=== PATIENT | male | born 1945 | race Caucasian/White ===

== ENCOUNTER 2021-11-19 11:15 | Outpatient (CLI) | payer MEDICARE, SELFPAY ==
[2021-11-19 11:56] LABS: Hematocrit 40.8 % (42.0-52.0); Hemoglobin 14.2 g/dL (14.0-18.0)
--- NOTE | 2021-11-19 11:58 | ECG_ITS ---
Measurements Intervals [place] Rate: 75 P: 64 CO: 150 QRS: -45 QRSD: 157 T: 18 QT: 410 QTc: 461 Interpretive Statements SINUS RHYTHM LEFT AXIS DEVIATION RIGHT BUNDLE BRANCH BLOCK INFERIOR INFARCT, AGE INDETERMINATE BASELINE ARTIFACT- I, III, AVL ABNORMAL ECG NO PREVIOUS ECG AVAILABLE FOR COMPARISON Electronically Signed On 11-19-2021 13:14:20 CDT by Rubio Clark D.O.
[2021-11-19 12:13] LABS: Albumin Level 4.4 g/dL (3.5-5.1); Estimated Glomerular Filt Rate > 60; Glucose 131 mg/dL (65-110)
== END 2021-11-19 11:16 | disposition home or self-care (01) ==
PROVIDERS: Visit Provider Orthopaedic Surgery
DX: M16.11 Unilateral primary osteoarthritis, right hip (principal); E11.9 Type 2 diabetes mellitus without complications; E78.5 Hyperlipidemia, unspecified; I05.9 Rheumatic mitral valve disease, unspecified; I10 Essential (primary) hypertension; I45.10 Unspecified right bundle-branch block
CPT/HCPCS: 36415; 82040; 82565; 82947; 83036; 85014; 85018; 93005

== ENCOUNTER 2021-12-18 08:28 | Outpatient (CLI) | payer MEDICARE, SELFPAY ==
[2021-12-18 10:30] LABS: Basophils Percent Auto 0.3 % (0.2-1.2); Eosinophils Absolute Auto 0.1 K/mm3 (0-0.3); Eosinophils Percent Auto 0.8 % (0-4.4); Hematocrit 40.7 % (42.0-52.0); Hemoglobin 14.1 g/dL (14.0-18.0); Immature Granulocyte Absolute 0.03 K/mm3 (0.00-0.031); Immature Granulocyte Percent A 0.3 % (0-0.5); Lymphocytes Absolute Auto 1.14 K/mm3 (0.9-3.2); Lymphocytes Percent Auto 12.4 % (18.3-44.2); Mean Corpuscular HGB Conc 34.6 g/dl (32-36); Mean Corpuscular Hemoglobin 30.3 pg (26-34); Mean Corpuscular Volume 87.3 fl (80-100); Mean Platelet Volume 9.5 fl (7.4-10.4); Monocytes Absolute Auto 0.9 K/mm3 (0.1-0.6); Neutrophils Percent Auto 76.2 % (45.5-73.1); Platelet Count Result 388 k/mm3 (150-375); Red Blood Count 4.66 M/mm3 (4.6-6.20); Red Cell Distribution Width 13.8 % (11.5-14.5); White Blood Count 9.2 K/mm3 (4.5-10.0)
[2021-12-18 10:44] LABS: Urine Cotinine NEGATIVE
[2021-12-18 10:45] LABS: Anion Gap 13 mmol/L (8-16); Blood Urea Nitrogen 12 mg/dL (9-20); Calcium 9.2 mg/dL (8.4-10.2); Carbon Dioxide 30 mmol/L (22-30); Chloride 92 mmol/L (98-107); Estimated Glomerular Filt Rate > 60; Glucose 117 mg/dL (65-110); Potassium 3.9 mmol/L (3.4-5.0); Sodium 135 mmol/L (137-145)
== END 2021-12-18 08:29 | disposition home or self-care (01) ==
PROVIDERS: Anesthesiology; Visit Provider Orthopaedic Surgery
DX: Z01.818 Encounter for other preprocedural examination (principal); E11.9 Type 2 diabetes mellitus without complications; M16.11 Unilateral primary osteoarthritis, right hip
CPT/HCPCS: 36415; 80048; 80307; 85025; 87081

== ENCOUNTER 2022-01-08 13:19 | Inpatient (IN) | payer MEDICARE, SELFPAY ==
[2021-12-18 08:32] VITALS: BP 164/64; PULSE 57; RESP 16; TEMP 36.6; O2SAT 100
--- NOTE | 2021-12-18 08:42 | PC.NURSE ---
Addendum entered by Tawanna Navas RN 12/18/21 10:11: PT AND ARE DOUBLE-CHECKING ON NUMBER OF DAYS TO HOLD ASPIRIN WITH DR HOWARD AT OFFICE LATER TODAY. Original Note: Report to the Outpatient Waiting Room, entrance under the green pavilion located off [facility], at time __9:00am on date __01/07/22 . Planned Procedure Time: __11:00am . Time changes happen often and if your time is changed the preop area will call you the afternoon before. - You and your visitor will be asked to self-screen and do not enter if you have any COVID symptoms. - We encourage only one visitor and NO visitors under age 16 are allowed at this time. Your visitor will receive communication by the phone number that is given day of service. - The patient visitor is requested to social distance or may leave the building when not with patient due to restrictions. - A mask is required within the hospital. Patients may have clear liquids (water, carbonated beverages, clear teas, apple juice) until 3 hours prior to surgery with a maximum of 20 ounces. - No food from midnight until time of surgery Take the following medications with a SIP of water the morning of surgery: ___HYDRALAZINE, MINOXIDIL Medications to discontinue per physician ____HOLD ASPIRIN AND NSAIDS(IBUPROFEN) 7 DAYS PRE-OP, LAST DOSE 12/31/21. HOLD ALL VITAMINS/SUPPLEMENTS 3 DAYS PRE-OP- LAST DOSE- 01/03/22 Please no make-up, nail kyrgyz, hairspray, perfume, deodorant, or body powder the day of surgery. No jewelry (including any body piercings) or valuables the day of surgery, leave them at home. Please take a shower or bath the night before, or the morning of, surgery with an antibacterial soap. Wear comfortable, loose fitting clothing. Children are encouraged to wear pajamas. - Jewelry must be removed prior to entering the operating room. Rings and piercings that are not removed may be cut off. - The hospital will not accept responsibility for valuables. - Please leave all valuables, including medications, at home the day of surgery. If you are going home after surgery, a licensed tanker truck driver must drive you home. - NO public transportation without another adult. - We recommend that an adult stay with you for 24 hours following discharge. - We also recommend that you do not drive, make important decision, drink alcoholic beverages, or take any drugs that were not prescribed by your health care provider for at least 24 hours after your discharge time. Follow any additional instructions given to you from your surgeon. If you or anyone in your household have experienced Covid symptoms in the past week, please notify your surgeon or the nurse liaison at the phone number below for possible testing. Telephone instructions given to __PATIENT & WIFE and asked if any additional questions and then verbalized understanding. Patient advised to call surgeon office or pre surgery nurse liaison [phone] if any additional questions.
[2021-12-18 08:49] VITALS: BMI 39.3
--- NOTE | 2022-01-06 14:12 | WPDANESEPPF ---
Anes - Initial Pre Proc Eval Procedure: Operation Date: 01/07/22 11:00 Proposed Procedures p Right Total Hip Arthroplasty - Girma Bedoya MD Date/Time: 01/06/22 14:12 Surgeon: Girma Bedoya MD Pre Op Diagnosis: Pim O A Rt Hip Patient Data Age: 76 Gender: M Height: 1.76 m Weight: 121.7 kg Last Vital Signs Temp 36.6 C 12/18/21 08:32 Pulse 57 L 12/18/21 08:32 Resp 16 12/18/21 08:32 BP 164/64 H 12/18/21 08:32 Pulse Ox 100 12/18/21 08:32 O2 Del Method Room Air 12/18/21 08:32 Allergies Allergy/AdvReac Type Severity Reaction Status Date / Time clonidine Allergy Unknown DECREASED Verified 01/07/22 06:29 HEARTRATE iodine Allergy Unknown Rash Verified 01/07/22 06:29 nifedipine Allergy Unknown Itching, Verified 01/07/22 06:29 RASH shellfish derived Allergy Unknown Itching Verified 01/07/22 06:29 felodipine AdvReac Unknown INCREASED Verified 01/07/22 06:29 HEARTRATE Home Medications Medication Instructions Recorded Confirmed Type atorvastatin 40 mg tablet 40 mg PO DAILY 10/11/21 01/07/22 History bisoprolol fumarate 10 mg tablet 20 mg PO HS 10/11/21 01/07/22 History blood sugar diagnostic (Contour 10/11/21 12/19/21 History Test Strips) cholecalciferol (vitamin D3) 10 10 mcg PO DAILY 10/11/21 01/07/22 History mcg (400 unit) capsule diabetic supplies, miscellan. 10/11/21 12/19/21 History fluticasone propionate 50 1 spray intranasal DAILY 10/11/21 01/07/22 History mcg/actuation nasal spray,suspension hydralazine 25 mg tablet 25 mg PO Q12H 10/11/21 01/07/22 History loratadine 10 mg tablet 10 mg PO HS PRN Itching 10/11/21 01/07/22 History metformin 500 mg tablet 1,000 mg PO QAM 10/11/21 01/07/22 History minoxidil 10 mg tablet 10 mg PO DAILY 10/11/21 01/07/22 History omega 7-mtq-dsi-fish oil 100 2 cap PO BID 10/11/21 01/07/22 History mg-160 mg-1,000 mg capsule (Fish Oil) triamterene 37.5 1 cap PO QAM 10/11/21 01/07/22 History mg-hydrochlorothiazide 25 mg capsule acetaminophen 325 mg tablet 650 mg PO ONCE PRN Pain 12/18/21 01/07/22 History aspirin 81 mg tablet,delayed 81 mg PO HS 12/18/21 01/07/22 History release cimetidine 200 mg tablet 200 mg PO ONCE PRN Indigestion 12/18/21 01/07/22 History ibuprofen 200 mg tablet 400 mg PO Q6H PRN Pain 12/18/21 12/19/21 History ECG: Date of Service: 11/19/21 Procedure(s): CA 12 lead EKG Accession Number(s): [id number] cc: ~ ? Measurements Intervals? [place]? Rate: ? 75 ? P:? 64 DE: ? 150? QRS:? -45 QRSD: ? 157? T:? 18 QT: ? 410? QTc:? 461? Interpretive Statements SINUS RHYTHM LEFT AXIS DEVIATION RIGHT BUNDLE BRANCH BLOCK INFERIOR INFARCT, AGE INDETERMINATE BASELINE ARTIFACT- I, III, AVL ABNORMAL ECG NO PREVIOUS ECG AVAILABLE FOR COMPARISON Electronically Signed On 11-19-2021 13:14:20 CDT by Rubio Clark D.O. Patient hx anesthesia problems: none Family hx anesthesia problems: none Results Review: All pre-operative results and documents have been reviewed as part of the pre-operative evaluation. [facility] Past Medical History Medical History (Updated 01/06/22 @ 14:14 by Earle Lamas MD) Arthritis of right hip At risk for diabetic foot ulcer Benign prostatic hyperplasia CAD (coronary artery disease) Coronary atherosclerosis Essential hypertension Hyperlipidemia Hypertrophic condition of skin Leukocytosis Lower back pain Mitral valve disorder Onychomycosis MAMADOU on CPAP Strain of tendon of lower back (~04/23/21) Type 2 diabetes mellitus Surgical History Surgical History H/O heart artery stent History of open heart surgery (~2006) Histor
[2022-01-07] VITALS (17 sets, daily range): BP systolic 105–147; BP diastolic 44–84; PULSE 66–88; RESP 12–20; TEMP 35.9–36.6; O2SAT 72–100
[2022-01-07] MEDS: ACETAMINOPHEN 500 MG TABLET 1000 MG PO ×3 (06:22→23:46)
[2022-01-07] MEDS: LACTATED RINGERS 1,000 ML 30 ML IV CONT ×2 (06:45→10:04)
[2022-01-07 06:59] LABS: Glucose Point of Care 126 mg/dl (65-105)
[2022-01-07] MEDS: TRANEXAMIC ACID 1,000MG/ISO100 1,000 MG/100 ML BAG 200 MG IVPB (07:01)
--- NOTE | 2022-01-07 07:16 | WPDHPUPDATE1 ---
History and Physical Update Update Date/Time: 01/07/22 07:16 History and Physical has been reviewed, including an updated exam of the patient. There are NO changes in the patient's condition. Risks, benefits, and alternatives have been discussed and questions answered. Patient agrees to proceed with procedure.
[2022-01-07] MEDS: ceFAZolin 3 GM/D5W 100 ML 100 ML IVPB (07:58)
[2022-01-07 10:12] LABS: Glucose Point of Care 149 mg/dl (65-105)
[2022-01-07] MEDS: fentaNYL CITRATE INJ (*CRX) 100 MCG/2 ML VIAL 25 MCG IV PUSH ×4 (10:42→11:13)
--- NOTE | 2022-01-07 11:37 | PC.NURSE ---
This patient, Jevon Wells, was admitted to 2 Medical Room 248-. Patient/family oriented to hospital policies and general routines including ID bracelet, bed and alarms, visiting hours, pain management, procedures, bathroom and other care routines, personal items, smoking policy, room service/diet, and visiting hours. Information on how to activate the [place] Team has been discussed. Patient/Family are encouraged to report perceived risks to care and to ask questions if they do not understand what they are told or what they should do.
[2022-01-07] MEDS: SODIUM CHLORIDE 0.9% IV 1,000 ML 125 ML IV CONT (12:08)
--- NOTE | 2022-01-07 15:58 | W.PM.PROC2 ---
Procedure Note - Detailed Date of Procedure 01/07/22 Pre-op Diagnosis Pim O A Rt Hip Post-op Diagnosis Same Procedure Performed Right total hip arthroplasty. Surgeon Girma Bedoya MD Identity Management Developer Anna Yusuf PA-C. Anesthesia General Description of Procedure The patient was given preoperative antibiotics. A general anesthetic was administered. The patient was carefully placed in the lateral decubitus position on the PEG board. The shoulders and hips were carefully positioned for component and leg length positioning reference. The hip was prepped and draped in the usual sterile fashion. A longitudinal incision was created over the posterior aspect of the greater trochanter. Careful dissection was brought down through the deep fascia with electrocautery. A minimally invasive optimized posterior approach to the hip was performed. The short external rotators and capsule were taken down in an L-shaped capsulotomy. The tissue was tagged for later repair using number 2 high strength suture. The femoral neck was measured and taken in situ. The femoral head was removed. The acetabulum was carefully exposed. The inferior capsule was released. The labrum was resected. The acetabulum was sequentially reamed to the intended cup size. The cup was impacted into position with excellent press-fit. Typical anatomic landmarks, including the bony contact points as well as the inferior transverse acetabular ligament were used to confirm cup positioning with preoperative templating. Attention was turned to the femur, which was carefully exposed. The hip was reamed and then broached sequentially. Excellent press-fit was obtained with the broach. The hip was trialed. Measurements were utilized, including the lesser trochanter as well as the center of the femoral head and the tip of the trochanter, and excellent assessment of the offset and leg lengths were confirmed. The real component was impacted into position. Trialing confirmed appropriate leg length and offset with soft tissue balancing as well apparent feel of the leg, both at the knee and the heel. Soft tissues were assessed using the the iliotibial band. Reduction of the posterior capsule and external rotators were also used as a secondary assessment. The hip was copiously irrigated with pulsatile lavage antibiotic solution periodically throughout the procedure. The real components were then assembled and reduced. The hip was stable throughout typical maneuvers, including extension, external rotation to 70 degrees, the position of sleep as well as flexion to 90 degrees with internal rotation past 45 degrees. The shake test confirmed stability without impingement. Osteophytes were removed as necessary. The short external rotators and capsule were repaired back to the posterior trochanter through drill holes. The deep fascia was repaired with running number 2 Quill suture, followed by 0 Stratafix suture and 2-0 Stratafix suture in the dermis. Steri-Strips were placed on the skin, followed by a sterile silver occlusive dressing. There were no complications. Meticulous hemostasis was maintained with the AquaMantys device. The patient was brought to the recovery room in stable condition. There were no complications. Physician inventory control assistant, Anna Yusuf PA-C, required for surgery; including patient positioning, draping, tissue retraction, maintaining instrument position, hip dislocation/ relocation, wound closure, and dressing placement. Implants The Accolade II hip stem, 127 degree size 7 , was utilized with excellent press-fit. The 54 mm Trident II acetabular component was impacted with excellent press-fit stability. The +2.5, 36 mm Biolox ceramic femoral head was utilized. 10 degree elevated liner. Estimated Blood Loss -150.0 Urine Output 200 Drains No Packing No Pathology None sent Complications No immediate complications Condition Stable Disposition PACU [facility] B[facility] Surgery - C
[2022-01-07] MEDS: ceFAZolin 2 GM/D5W 50 ML 2 GM/50 ML BAG IVPB ×2 (16:28→23:46)
[2022-01-07] MEDS: SENNA/DOCUSATE SODIUM TABLET 2 TAB PO (17:11)
[2022-01-07] MEDS: ASPIRIN 81 MG ENTERIC TABLET PO (17:11)
[2022-01-07] MEDS: HYDROcodone/acetaminophen (*CRX) 5-325 MG TABLET 1 TAB PO ×2 (17:12→21:54)
[2022-01-07 21:35] LABS: Glucose Point of Care 180 mg/dl (65-105)
[2022-01-07] MEDS: bisoproloL fumarate 5 MG TABLET 20 MG PO (21:39)
[2022-01-07] MEDS: FAMOTIDINE 20 MG TABLET PO (21:39)
[2022-01-08] VITALS (9 sets, daily range): BP systolic 117–169; BP diastolic 48–87; PULSE 78–93; RESP 14–20; TEMP 36.4–36.9; O2SAT 96–100
--- NOTE | ~2022-01-08 | XR_ITS ---
XR hip RT 2V w AP pelvis DATE: 01/08/2022 09:24 INDICATION: Severe hip pain after total hip arthroplasty. Possible dislocation. TECHNIQUE: AP pelvis. AP and crosstable lateral views of right hip COMPARISON: 01/07/2022 right hip FINDINGS: Status post right total hip arthroplasty. No fracture or dislocation. No pelvic fracture or bone destruction. The pubic symphysis and sacral iliac joints are intact. Abdominal aortic and bilateral common iliac artery calcifications. IMPRESSION: Status post right hip arthroplasty; no fracture or dislocation Reviewed, dictated and finalized at location A. [employer]
--- NOTE | ~2022-01-08 | XR_ITS ---
EXAMINATION: XR hip RT min 2V DATE: 01/07/2022 10:26 INDICATION: Postoperative evaluation following right total hip arthroplasty TECHNIQUE: Anteroposterior and lateral views of the right hip were obtained. COMPARISON: Right hip radiographs dated 10/14/2021 FINDINGS: Interval placement of a noncemented right total hip arthroplasty which appears well seated in near an atomic alignment. Expected subcutaneous gas in the postoperative bed. No fractures identified. IMPRESSION: 1. Right total hip arthroplasty, negative for postoperative purposes. Reviewed, dictated and finalized at location B. NURSE
[2022-01-08 05:28] LABS: Anion Gap 6 mmol/L (8-16); Blood Urea Nitrogen 11 mg/dL (9-20); Calcium 8.2 mg/dL (8.4-10.2); Carbon Dioxide 27 mmol/L (22-30); Chloride 92 mmol/L (98-107); Estimated CRCL calculation 73 ml/min; Estimated Glomerular Filt Rate > 60; Glucose 148 mg/dL (65-110); Potassium 3.8 mmol/L (3.4-5.0); Sodium 125 mmol/L (137-145)
[2022-01-08 05:31] LABS: Basophils Percent Auto 0.2 % (0.2-1.2); Eosinophils Percent Auto 0.1 % (0-4.4); Hematocrit 32.3 % (42.0-52.0); Hemoglobin 11.2 g/dL (14.0-18.0); Immature Granulocyte Absolute 0.06 K/mm3 (0.00-0.031); Immature Granulocyte Percent A 0.5 % (0-0.5); Lymphocytes Absolute Auto 0.71 K/mm3 (0.9-3.2); Lymphocytes Percent Auto 5.5 % (18.3-44.2); Mean Corpuscular HGB Conc 34.7 g/dl (32-36); Mean Corpuscular Hemoglobin 29.6 pg (26-34); Mean Corpuscular Volume 85.4 fl (80-100); Mean Platelet Volume 10.1 fl (7.4-10.4); Monocytes Absolute Auto 1.6 K/mm3 (0.1-0.6); Monocytes Percent Auto 12.1 % (2.6-8.5); Neutrophils Absolute Auto 10.5 K/mm3 (1.3-6.7); Neutrophils Percent Auto 81.6 % (45.5-73.1); Platelet Count Result 335 k/mm3 (150-375); Red Blood Count 3.78 M/mm3 (4.6-6.20); Red Cell Distribution Width 13.8 % (11.5-14.5); White Blood Count 12.9 K/mm3 (4.5-10.0)
[2022-01-08] MEDS: ACETAMINOPHEN 500 MG TABLET 1000 MG PO ×3 (06:21→18:43)
--- NOTE | 2022-01-08 08:29 | PCPTNOTE ---
Per P.A. patient is having a lot of pain and will order an X-ray on right hip. PT will wait to see patient once X-rays show good alignment and no dislocation.
[2022-01-08] MEDS: ceFAZolin 2 GM/D5W 50 ML 2 GM/50 ML BAG IVPB (08:50)
[2022-01-08] MEDS: HYDROcodone/acetaminophen (*CRX) 5-325 MG TABLET 1 TAB PO ×2 (08:51→14:45)
[2022-01-08] MEDS: SENNA/DOCUSATE SODIUM TABLET 2 TAB PO ×2 (08:54→16:51)
[2022-01-08] MEDS: ATORVASTATIN 40 MG TABLET PO (08:54)
[2022-01-08] MEDS: ASPIRIN 81 MG ENTERIC TABLET PO ×2 (08:54→16:51)
[2022-01-08 08:55] LABS: Glucose Point of Care 177 mg/dl (65-105)
[2022-01-08] MEDS: FAMOTIDINE 20 MG TABLET PO ×2 (08:55→20:53)
[2022-01-08] MEDS: metFORMIN HCL 500 MG TABLET 1000 MG PO (08:55)
[2022-01-08] MEDS: polyethylene glycoL 3350 17 GM POWD.PACK PO (09:38)
--- NOTE | 2022-01-08 10:24 | PCPTNOTE ---
Pt independent in room per RN. Pt declined need of therapy evaluation. Hospitalist aware of discharge. Care coordination aware of discharge of therapy orders.
--- NOTE | 2022-01-08 10:38 | PCPTNOTE ---
Attempted to see patient for PT after X-ray results, however patient declined due to pain. Attempted 15 reps of ankle pumps and patient reported it was too painful just doing ankle pumps and that he can't do it right now.
--- NOTE | 2022-01-08 10:43 | PCOTNOTE ---
Attempted to see patient this AM for OT services patient denied services at this time due to elevated pain levels in hip, RN aware. Educated patient on benefits of OT. Patient asked for OT to return after lunch.
--- NOTE | 2022-01-08 10:59 | PM.PNORT ---
Progress Note: A&P Assessment and Plan (1) Status post total hip replacement, right: Code(s): Z96.641 - Presence of right artificial hip joint Status: Acute Assessment and Plan: Postop day 1: Right total Hip arthroplasty. Patient complains of increased pain today. He feels like he cannot move his hip due to the pain. He did well with PT yesterday. Unable to work with PT today. Spoke with PT/OT and nursing today. Ordered xray of the hip to check for possible dislocation. Xray negative for dislocation. Likely increased pain after the intra-operative numbing medication wore off. He also had trouble urinating last night and a Burton catheter was placed. Sodium low today. Will consult hospitalist for medical management. Patient is diabetic. Patient gets low blood pressure with pain medications. He will only take 5 mg [place] at a time. This is not controlling his pain. PT will try to work with him again later today. Patient will likely need a longer stay due to pain control issues and postoperative urinary retention. Discussed this with Dr. Bedoya who agreed with plan. Subjective Subjective Date/Time Seen: 01/08/22 10:59 Interval history: Patient is post op day 1 from right total hip arthroplasty. He notes increased pain today. Poorly controlled. Unable to do PT due to the pain. No numbness or tingling. He states he did not have an injury or feel the hip dislocate. He did well with PT yesterday before the intra-operative numbing medication wore off. He states he has blood pressure issues with taking [place] and will only take 5 mg at a time. He had issues urinating last night and a Burton catheter was placed. Review of Systems Review of Systems: All systems reviewed & are unremarkable except as noted in HPI and below Exam Narrative: Obese 76 y/o male. Resting comfortably in bed. No pain at rest. Pain with any motion of the hip. Wearing compression socks bilaterally. Dressing dry and intact with no drainage. No swelling. No ecchymosis. No erythema. No hematoma. Range of motion limited due to pain. Calf nontender. Thigh nontender. Neurologic status intact. No varicosities. Distal pulses palpable. Objective Data Vital Signs Vital Signs: Vital Signs - 24 hr 01/07/22 11:05 01/07/22 11:20 01/07/22 12:00 Temperature Pulse Rate 80 78 Respiratory Rate 16 12 Blood Pressure 137/53 L 129/52 L Pulse Oximetry 97 97 100 Oxygen Delivery Nasal Cannula Nasal Cannula Nasal Cannula Oxygen Flow Rate 2 2 2 01/07/22 13:48 01/07/22 11:40 01/07/22 11:55 Temperature 97.8 F 97.8 F Pulse Rate 66 88 Respiratory Rate 16 18 Blood Pressure 135/47 L 140/66 Pulse Oximetry 99 99 Oxygen Delivery Room Air Oxygen Flow Rate 01/07/22 12:25 01/07/22 13:25 01/07/22 18:00 Temperature 97.8 F 97.8 F 97.6 F Pulse Rate 75 76 77 Respiratory Rate 16 18 16 Blood Pressure 115/49 L 116/44 L 116/48 L Pulse Oximetry 100 97 99 Oxygen Delivery Oxygen Flow Rate 01/07/22 18:40 01/07/22 21:10 01/07/22 21:39 Temperature 96.6 F L Pulse Rate 83 82 82 Respiratory Rate 18 Blood Pressure 139/54 L Pulse Oximetry 98 100 Oxygen Delivery Room Air Oxygen Flow Rate 01/08/22 00:01 01/08/22 02:53 01/07/22 20:00 Temperature 97.6 F Pulse Rate 93 82 Respiratory Rate 20 Blood Pressure 169/76 H Pulse Oximetry 99 97 Oxygen Delivery Room Air Room Air Oxygen Flow Rate 01/08/22 04:38 Temperature 97.9 F Pulse Rate 79 Respiratory Rate 18 Blood Pressure 117/72 Pulse Oximetry 96 Oxygen Delivery Oxygen Flow Rate Intake/Output Intake/Output: Intake & Output 01/05/22 01/06/22 01/07/22 01/08/22 23:59 23:59 23:59 23:59 Intake Total 790 170 Output Total 800 Balance 790 -630 Meds/Results Medications: Active Medications Generic Name Dose Route Start Last Admin Trade Name Freq PRN Reason Stop Dose Admin Acetaminophen 1,000 mg 01/07/22 12:00 01/08/22 06:21 Acetaminophen 500 Mg T
[2022-01-08 12:39] LABS: Glucose Point of Care 137 mg/dl (65-105)
--- NOTE | 2022-01-08 12:44 | WPDANESPN ---
Anes - Prog Note Post-Op Date/Time: 01/08/22 12:44 Cardiovascular status: normal Respiratory status: normal (using home CPAP) Airway patency: baseline Mental status: baseline Post-Op hydration status: normal Vital Signs: Last Vital Signs Temp 36.6 C 01/08/22 10:00 Pulse 78 01/08/22 10:00 Resp 14 01/08/22 10:00 BP 140/52 L 01/08/22 10:00 Pulse Ox 99 01/08/22 10:00 O2 Del Method Room Air 01/08/22 02:53 O2 Flow Rate 2 01/07/22 12:00 Pain Score (VAS): 6 I/O: Intake & Output 01/07/22 01/08/22 01/08/22 23:59 07:59 15:59 Intake Total 150 170 0 Output Total 800 Balance 150 -630 0 Laboratory Tests 01/08/22 04:43 01/08/22 04:43 01/07/22 01/08/22 01/08/22 21:21 04:43 04:43 WBC 12.9 H RBC 3.78 L Hgb 11.2 L Hct 32.3 L MCV 85.4 MCH 29.6 MCHC 34.7 RDW 13.8 Plt Count 335 MPV 10.1 Immature Gran % (Auto) 0.5 Neut % (Auto) 81.6 H Lymph % (Auto) 5.5 L [place] % (Auto) 12.1 H Eos % (Auto) 0.1 Baso % (Auto) 0.2 Lymph # (Auto) 0.71 L [place] # (Auto) 1.6 H Eos # (Auto) 0.0 Baso # (Auto) 0.0 Abs Immat Gran (auto) 0.06 H Absolute Neuts (auto) 10.5 H Absolute Nucleated RBC 0.0 Nucleated RBC % 0.0 Sodium 125 L Potassium 3.8 Chloride 92 L Carbon Dioxide 27 Anion Gap 6 L BUN 11 Creatinine 1.00 Estim Creat Clear Calc 73 Estimated GFR > 60 Glucose 148 H POC Capillary Glucose 180 H Calcium 8.2 L 01/08/22 01/08/22 08:49 12:31 WBC RBC Hgb Hct MCV MCH MCHC RDW Plt Count MPV Immature Gran % (Auto) Neut % (Auto) Lymph % (Auto) [place] % (Auto) Eos % (Auto) Baso % (Auto) Lymph # (Auto) [place] # (Auto) Eos # (Auto) Baso # (Auto) Abs Immat Gran (auto) Absolute Neuts (auto) Absolute Nucleated RBC Nucleated RBC % Sodium Potassium Chloride Carbon Dioxide Anion Gap BUN Creatinine Estim Creat Clear Calc Estimated GFR Glucose POC Capillary Glucose 177 H 137 H Calcium Patient Feedback: Patient satisfied with anesthetic care. Patient expressing concerns over pain, lack of eating and drowsiness. Educated on important of PT/OT and diet. Spent over 30 min talking to patient and family over concerns, patient wanted throat spray so he could eat. I spoke with RN and she was contacting hospitalist. They were satisfied with anesthetic care.
--- NOTE | 2022-01-08 14:49 | PC.NURSE ---
Notified Dr. López that patient's B/P meds were held today due to patient and having concerns that patient's BP is notably lower since surgery yesterday.
[2022-01-08] MEDS: PHENOL/SOD PHENO SPRAY CHERRY (*BKC) 1 SPRAY MUCOUS MEM (16:26)
[2022-01-08 17:57] LABS: Glucose Point of Care 160 mg/dl (65-105)
--- NOTE | 2022-01-08 19:30 | PM.IMHP ---
H&P: HPI History of Present Illness Date/Time: 01/08/22 19:30 Chief Complaint: [facility] Past Medical History Medical History Arthritis of right hip At risk for diabetic foot ulcer Benign prostatic hyperplasia CAD (coronary artery disease) Coronary atherosclerosis Essential hypertension Hyperlipidemia Hypertrophic condition of skin Leukocytosis Lower back pain Mitral valve disorder Onychomycosis MAMADOU on CPAP Strain of tendon of lower back (~04/23/21) Type 2 diabetes mellitus Surgical History Surgical History H/O heart artery stent History of open heart surgery (~2006) History of right knee joint replacement Family History Family History Sibling History of stroke Heart disease Sibling Heart disease Social History Social History Smoking status: Never smoker Second hand tobacco smoke exposure: Yes Alcohol intake: never Substance use: never Lack of Transportation: No Lack of Food: Never True Current Housing: I Have Housing Concerned About Future Housing: No Difficulty Paying Gas/Electric Bills: No Difficulty Paying for Meds: No Currently Unemployed: No Education: High School Diploma/GED Difficulty w/ Childcare or Family Care: No Living arrangements: with family Additional living arrangements comments: Spiritual care concerns: No Meds Home Medications and Allergies Home Medications Medication Instructions Recorded Confirmed Type atorvastatin 40 mg tablet 40 mg PO DAILY 10/11/21 01/07/22 History bisoprolol fumarate 10 mg tablet 20 mg PO HS 10/11/21 01/07/22 History blood sugar diagnostic (Contour 10/11/21 12/19/21 History Test Strips) cholecalciferol (vitamin D3) 10 10 mcg PO DAILY 10/11/21 01/07/22 History mcg (400 unit) capsule diabetic supplies, miscellan. 10/11/21 12/19/21 History fluticasone propionate 50 1 spray intranasal DAILY 10/11/21 01/07/22 History mcg/actuation nasal spray,suspension hydralazine 25 mg tablet 25 mg PO Q12H 10/11/21 01/07/22 History loratadine 10 mg tablet 10 mg PO HS PRN Itching 10/11/21 01/07/22 History metformin 500 mg tablet 1,000 mg PO QAM 10/11/21 01/07/22 History minoxidil 10 mg tablet 10 mg PO DAILY 10/11/21 01/07/22 History omega 2-jca-ofz-fish oil 100 2 cap PO BID 10/11/21 01/07/22 History mg-160 mg-1,000 mg capsule (Fish Oil) triamterene 37.5 1 cap PO QAM 10/11/21 01/07/22 History mg-hydrochlorothiazide 25 mg capsule acetaminophen 325 mg tablet 650 mg PO ONCE PRN Pain 12/18/21 01/07/22 History aspirin 81 mg tablet,delayed 81 mg PO HS 12/18/21 01/07/22 History release cimetidine 200 mg tablet 200 mg PO ONCE PRN Indigestion 12/18/21 01/07/22 History ibuprofen 200 mg tablet 400 mg PO Q6H PRN Pain 12/18/21 12/19/21 History Allergies Allergy/AdvReac Type Severity Reaction Status Date / Time clonidine Allergy Unknown DECREASED Verified 01/07/22 06:29 HEARTRATE iodine Allergy Unknown Rash Verified 01/07/22 06:29 nifedipine Allergy Unknown Itching, Verified 01/07/22 06:29 RASH shellfish derived Allergy Unknown Itching Verified 01/07/22 06:29 felodipine AdvReac Unknown INCREASED Verified 01/07/22 06:29 HEARTRATE Vital Signs Vital Signs - 24 hr 01/07/22 21:10 01/07/22 21:39 01/08/22 00:01 Temperature 96.6 F L 97.6 F Pulse Rate 82 82 93 Respiratory Rate 18 20 Blood Pressure 139/54 L 169/76 H Pulse Oximetry 100 99 Oxygen Delivery 01/08/22 02:53 01/07/22 20:00 01/08/22 04:38 Temperature 97.9 F Pulse Rate 82 79 Respiratory Rate 18 Blood Pressure 117/72 Pulse Oximetry 97 96 Oxygen Delivery Room Air Room Air 01/08/22 10:00 01/08/22 16:34 01/08/22 18:55 Temperature 98 F 98.3 F 98.1 F Pulse Rate 78 85 84 Re
--- NOTE | 2022-01-08 19:32 | PM.IMCN ---
Assessment and Plan Assessment and plan (1) Status post total hip replacement, right: Code(s): Z96.641 - Presence of right artificial hip joint Status: Acute Assessment and Plan: Tolerated well DVT prophylaxis per surgery Started SCD Pain control (2) MAMADOU on CPAP: Code(s): G47.33 - Obstructive sleep apnea (adult) (pediatric); Z99.89 - Dependence on other enabling machines and devices Status: Acute Assessment and Plan: Continue home medication (3) CAD (coronary artery disease): Code(s): I25.10 - Atherosclerotic heart disease of [place] coronary artery without angina pectoris Status: Acute Assessment and Plan: Aspirin statin beta-parmjit (4) Type 2 diabetes mellitus: Code(s): E11.9 - Type 2 diabetes mellitus without complications Status: Acute Assessment and Plan: Hold metformin increased risk for lactic acidosis Started insulin sliding scale (5) Hyperlipidemia: Code(s): E78.5 - Hyperlipidemia, unspecified Status: Acute Assessment and Plan: Resume statin (6) Coronary atherosclerosis: Code(s): I25.10 - Atherosclerotic heart disease of [place] coronary artery without angina pectoris Status: Acute Assessment and Plan: As above (7) Essential hypertension: Code(s): I10 - Essential (primary) hypertension Status: Acute Assessment and Plan: Continue beta-parmjit monitor (8) Hyponatremia: Code(s): E87.1 - Hypo-osmolality and hyponatremia Status: Acute Assessment and Plan: Most likely related to diuretics Hold oral diuretics Monitor sodium every 6 hours Should check urine electrolyte Patient aware of the hyponatremia before admission and was asked to cut down on the amount of fluid he could drink concern for polydipsia (9) Leukocytosis: Code(s): D72.829 - Elevated white blood cell count, unspecified Status: Acute Assessment and Plan: Most likely reactive monitor HPI Data of Consult Consult date: 01/08/22 Requesting Physician: Girma Bedoya MD Primary Care Provider: PHYSICIAN NOT ON STAF Consult Narrative Narrative: 6 years old male with past medical history of right hip pain presented to the hospital for right hip arthroplasty tolerated well patient has history of diabetes on metformin hypertension on diuretics hyperlipidemia on statin patient has leukocytosis denies fever or chills patient also has low sodium sodium was 125 denies nausea vomiting diarrhea patient was on diuretics patient denies weakness numbness or tremors Review of Systems Review of Systems: Twelve system review was done was negative except above PMFSH Past Medical History Medical History Arthritis of right hip At risk for diabetic foot ulcer Benign prostatic hyperplasia CAD (coronary artery disease) Coronary atherosclerosis Essential hypertension Hyperlipidemia Hypertrophic condition of skin Leukocytosis Lower back pain Mitral valve disorder Onychomycosis MAMADOU on CPAP Strain of tendon of lower back (~04/23/21) Type 2 diabetes mellitus Surgical History Surgical History H/O heart artery stent History of open heart surgery (~2006) History of right knee joint replacement Family History Family History Sibling History of stroke Heart disease Sibling Heart disease Social History Social History Smoking status: Never smoker Second hand tobacco smoke exposure: Yes Alcohol intake: never Substance use: never Lack of Transportation: No Lack of Food: Never True Current Housing: I Have Housing Concerned About Future Housing: No Difficulty Paying Gas/Electric Bills: No Difficulty Paying for Meds: No Cur
[2022-01-08 19:50] LABS: Sodium 128 mmol/L (137-145)
[2022-01-08] MEDS: bisoproloL fumarate 5 MG TABLET 20 MG PO (20:53)
[2022-01-08 21:02] LABS: Creatinine Urine 324.2 mg/dL
[2022-01-08 21:08] LABS: Potassium Urine Random 36.8 meq/L
[2022-01-08 21:10] LABS: Glucose Point of Care 142 mg/dl (65-105)
[2022-01-08 21:45] LABS: Sodium Urine Random < 5 meq/L
[2022-01-08 22:13] LABS: Total Protein Urine Random 38 mg/dL
[2022-01-09] VITALS (8 sets, daily range): BP systolic 134–164; BP diastolic 53–60; PULSE 60–90; RESP 16–18; TEMP 36.4–37.2; O2SAT 96–99
[2022-01-09] MEDS: ACETAMINOPHEN 500 MG TABLET 1000 MG PO ×4 (00:10→18:07)
[2022-01-09 08:09] LABS: Glucose Point of Care 130 mg/dl (65-105)
[2022-01-09 09:02] LABS: Anion Gap 11 mmol/L (8-16); Blood Urea Nitrogen 11 mg/dL (9-20); Calcium 8.7 mg/dL (8.4-10.2); Carbon Dioxide 26 mmol/L (22-30); Chloride 91 mmol/L (98-107); Estimated CRCL calculation 73 ml/min; Estimated Glomerular Filt Rate > 60; Glucose 129 mg/dL (65-110); Sodium 128 mmol/L (137-145)
[2022-01-09] MEDS: hydrALAZINE HCL 25 MG TABLET PO ×2 (09:08→18:07)
[2022-01-09] MEDS: SENNA/DOCUSATE SODIUM TABLET 2 TAB PO ×2 (09:09→18:06)
[2022-01-09] MEDS: FAMOTIDINE 20 MG TABLET PO ×2 (09:09→20:23)
[2022-01-09] MEDS: ASPIRIN 81 MG ENTERIC TABLET PO ×2 (09:09→18:06)
[2022-01-09] MEDS: minoxidiL 10 MG TABLET PO (09:10)
[2022-01-09] MEDS: polyethylene glycoL 3350 17 GM POWD.PACK PO (09:10)
--- NOTE | 2022-01-09 10:57 | PCOTNOTE ---
Patient asked for PATRICIA to return in the afternoon, stated We are dealing with some family things right now and I am worn out, and using the ice pack for pain, but I promise I will get up for lunch and stay up. PATRICIA will return this afternoon
--- NOTE | 2022-01-09 11:27 | PM.PNORT ---
Progress Note: A&P Assessment and Plan (1) Status post total hip replacement, right: Code(s): Z96.641 - Presence of right artificial hip joint Status: Acute Assessment and Plan: Postop day 2: Right total Hip arthroplasty. Improvement in pain control today. He is doing better with PT but he is concerned that he cannot get himself in and out of bed on his own because he does not have the strength to lift his own leg. He is very deconditioned and feels weak. He has hyponatremia and has a Burton catheter placed due to urinary retention. Will attempt to remove Burton catheter today. Due to his hyponatremia and weakness he will likely need another night. Depending on how he does with PT he may or may not need inpatient rehab to continue working on strength. His has bad knees and is unable to help him at home. If he goes home, they are planning to stay with a family member for a few days. He would need to climb stairs to get into the home. Will continue to follow. Subjective Subjective Date/Time Seen: 01/09/22 11:27 Interval history: Patient resting comfortably in bed. Pain better tolerated today. He is doing better with PT but he still cannot get his leg in and out of bed on his own. His has bad knees and states that she cannot help her. No other complaints. Burton catheter in place. Review of Systems Review of Systems: All systems reviewed & are unremarkable except as noted in HPI and below Exam Narrative: Obese 76 y/o male. Resting comfortably in bed. No pain at rest. Pain with motion of the hip. Wearing compression socks bilaterally. Dressing dry and intact with no drainage. No swelling. No ecchymosis. No erythema. No hematoma. Range of motion limited due to pain. Calf nontender. Thigh nontender. Neurologic status intact. No varicosities. Distal pulses palpable. Objective Data Vital Signs Vital Signs: Vital Signs - 24 hr 01/08/22 16:34 01/08/22 18:55 01/08/22 20:08 Temperature 98.3 F 98.1 F 98.5 F Pulse Rate 85 84 81 Respiratory Rate 14 14 20 Blood Pressure 144/48 H 148/87 H 166/66 H Pulse Oximetry 100 100 99 Oxygen Delivery 01/08/22 20:53 01/08/22 20:00 01/09/22 00:10 Temperature 97.9 F Pulse Rate 81 70 Respiratory Rate 16 Blood Pressure 152/55 H Pulse Oximetry 97 Oxygen Delivery Room Air 01/08/22 23:05 01/09/22 03:00 01/09/22 04:25 Temperature 97.7 F Pulse Rate 85 82 60 Respiratory Rate 16 Blood Pressure 140/53 L Pulse Oximetry 97 96 99 Oxygen Delivery Room Air Room Air 01/09/22 08:00 01/09/22 10:00 Temperature 97.5 F L Pulse Rate 75 Respiratory Rate 18 Blood Pressure 164/60 H Pulse Oximetry 99 Oxygen Delivery Room Air Intake/Output Intake/Output: Intake & Output 01/06/22 01/07/22 01/08/22 01/09/22 23:59 23:59 23:59 23:59 Intake Total 790 1260 390 Output Total 800 450 Balance 790 460 -60 Meds/Results Medications: Active Medications Generic Name Dose Route Start Last Admin Trade Name Freq PRN Reason Stop Dose Admin Acetaminophen 1,000 mg 01/07/22 12:00 01/09/22 06:45 Acetaminophen 500 Mg Tablet PO 1,000 mg Q6HR JASON Administration Hydrocodone Bitart/Acetaminophen 1 tab 01/07/22 11:25 01/08/22 14:45 Hydrocodone/Acetaminophen (*Crx) 5-325 Mg Tablet PO 1 tab Q4H PRN Administration Pain Rated 4-6 Hydrocodone Bitart/Acetaminophen 2 tab 01/07/22 11:25 Hydrocodone/Acetaminophen (*Crx) 5-325 Mg Tablet PO Q6H PRN Pain Rated 7-10 Aspirin 81 mg 01/07/22 17:00 01/09/22 09:09 Aspirin 81 Mg Enteric Tablet PO 81 mg BID JASON Administration Atorvastatin Calcium 40 mg 01/08/22 09:00 01/08/22 08:54 Atorvastatin 40 Mg Tablet PO 40 mg DAILY JASON Administration Bisoprolol Fumarate 20 mg 01/07/22 21:00 01/08/22 20:53 Bisoprolol Fumarate 5 Mg Tablet PO 02/06/22 20:59 20 mg HS JASON Administration Cyclobenzaprine HCl 10 mg 01/07/22 11:25 Cyclobenzaprine Hcl
[2022-01-09 11:50] LABS: Glucose Point of Care 137 mg/dl (65-105)
[2022-01-09 12:35] LABS: Glucose Point of Care 133 mg/dl (65-105)
--- NOTE | 2022-01-09 13:37 | PC.NURSE ---
On 01/09/22, the student, [Lu Simmons], provided care and completed [facility] documentation on this patient. I have reviewed the student's documentation and agree with the findings.
[2022-01-09 15:05] LABS: Sodium 128 mmol/L (137-145)
--- NOTE | 2022-01-09 16:45 | PM.IMPN ---
Progress Note: A&P Assessment and Plan (1) Status post total hip replacement, right: Code(s): Z96.641 - Presence of right artificial hip joint Status: Acute Assessment and Plan: Underwent right total hip arthroplasty on 01/07/[address] Bedoya. Tolerated the procedure well. Management per Orthopedic surgery (2) Hyponatremia: Code(s): E87.1 - Hypo-osmolality and hyponatremia Status: Acute Assessment and Plan: Reportedly has history of chronic hyponatremia. Sodium in November 2021 was 135. Sodium decline to 125 postoperatively. Triamterene-hydrochlorothiazide is on hold. 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 Sodium remaining stable at 128 today. Continue with fluid restriction, will increase limitations to 1800 per day. Urine sodium is <5. Osmolality is pending. Recheck sodium tomorrow morning (3) Urinary retention: Code(s): R33.9 - Retention of urine, unspecified Status: Acute Assessment and Plan: Burton catheter was initiated on 01/08 due to issues with retention. Recommend completing voiding trial prior to discharge. (4) Leukocytosis: Code(s): D72.829 - Elevated white blood cell count, unspecified Status: Acute Assessment and Plan: Likely reactive secondary to surgery. No signs/symptoms to suggest acute infection. Will repeat CBC tomorrow to evaluate (5) MAMADOU on CPAP: Code(s): G47.33 - Obstructive sleep apnea (adult) (pediatric); Z99.89 - Dependence on other enabling machines and devices Status: Chronic Assessment and Plan: Continue home CPAP (6) CAD (coronary artery disease): Code(s): I25.10 - Atherosclerotic heart disease of [place] coronary artery without angina pectoris Status: Chronic Assessment and Plan: No acute issues. Continue aspirin, bisoprolol, atorvastatin (7) Type 2 diabetes mellitus: Code(s): E11.9 - Type 2 diabetes mellitus without complications Status: Acute Assessment and Plan: Last A1c 6.0 in October 2021. Blood sugars have been well controlled during admission. Metformin on hold. Continue Accu-Cheks, sliding scale insulin, hypoglycemic protocol (8) Essential hypertension: Code(s): I10 - Essential (primary) hypertension Status: Acute Assessment and Plan: Continue bisoprolol and hydralazine. Triamterene-hydrochlorothiazide is on hold and should likely be discontinued prior to discharge given hyponatremia. Blood pressures have been stable off this medication. Last BP 134/56 Subjective Date/time seen: 01/09/22 16:45 Interval history: Date of service: 01/09/2022 Jevon Wells is a 76-year-old male with a history of BPH, CAD, hypertension, hyperlipidemia, type 2 diabetes mellitus, and osteoarthritis of the right hip s/p right total hip arthroplasty. He is being seen in consultation for medical management. He states that he is having improvement in pain today. At the time of my evaluation he rated his pain is 2/10 after recently receiving pain medication. This morning, ambulating with therapy his pain increased to about 8-9 of 10. He reports that he was able to get up and walk to the bathroom and to the door with assistance. He had a sore throat postoperatively which has improved with Chloraseptic spray. He reports having a regular bowel movement today. He denies shortness of breath, cough, congestion, fever, chills. No issues with his Burton catheter. Review of Systems Review of Systems: All systems reviewed & are unremarkable except as noted in HPI and below Exam Narrative: General: Well-nourished, well-appearing 76-year-old male, sitting up in bed, comfortable, NARD Neuro: awake, alert and oriented x4, speech clear, no focal neuro deficits noted HEENMT: normocephalic, atraumatic, EOMI, sclerae anicteric Respiratory: clear to auscultation bilaterally, nonlabored breathing Cardio: regular rate, regula
[2022-01-09 17:13] LABS: Glucose Point of Care 154 mg/dl (65-105)
[2022-01-09] MEDS: bisoproloL fumarate 5 MG TABLET 20 MG PO (20:24)
[2022-01-09] MEDS: ATORVASTATIN 40 MG TABLET PO (20:24)
[2022-01-09] MEDS: HYDROcodone/acetaminophen (*CRX) 5-325 MG TABLET 1 TAB PO (21:37)
[2022-01-10] VITALS (9 sets, daily range): BP systolic 137–158; BP diastolic 52–61; PULSE 61–81; RESP 18–21; TEMP 36.3–37.1; O2SAT 97–100
[2022-01-10 06:14] LABS: Anion Gap 8 mmol/L (8-16); Blood Urea Nitrogen 13 mg/dL (9-20); Calcium 8.4 mg/dL (8.4-10.2); Carbon Dioxide 27 mmol/L (22-30); Chloride 93 mmol/L (98-107); Estimated CRCL calculation 80 ml/min; Estimated Glomerular Filt Rate > 60; Glucose 131 mg/dL (65-110); Potassium 3.7 mmol/L (3.4-5.0); Sodium 128 mmol/L (137-145)
[2022-01-10 06:25] LABS: Hematocrit 29.8 % (42.0-52.0); Hemoglobin 10.5 g/dL (14.0-18.0); Mean Corpuscular HGB Conc 35.2 g/dl (32-36); Mean Corpuscular Hemoglobin 29.7 pg (26-34); Mean Corpuscular Volume 84.4 fl (80-100); Mean Platelet Volume 10.3 fl (7.4-10.4); Platelet Count Result 301 k/mm3 (150-375); Red Blood Count 3.53 M/mm3 (4.6-6.20); Red Cell Distribution Width 14.1 % (11.5-14.5); White Blood Count 11.8 K/mm3 (4.5-10.0)
[2022-01-10] MEDS: hydrALAZINE HCL 25 MG TABLET PO ×2 (07:46→17:35)
[2022-01-10] MEDS: ACETAMINOPHEN 500 MG TABLET 1000 MG PO ×3 (07:46→17:35)
[2022-01-10] MEDS: SODIUM CHLORIDE 0.9% IV 1,000 ML 120 ML IV CONT ×2 (07:50→23:54)
[2022-01-10 08:40] LABS: Glucose Point of Care 151 mg/dl (65-105)
[2022-01-10] MEDS: ASPIRIN 81 MG ENTERIC TABLET PO ×2 (09:19→17:35)
[2022-01-10] MEDS: minoxidiL 10 MG TABLET PO (09:19)
[2022-01-10] MEDS: SENNA/DOCUSATE SODIUM TABLET 2 TAB PO ×2 (09:20→17:35)
[2022-01-10] MEDS: polyethylene glycoL 3350 17 GM POWD.PACK PO (09:20)
[2022-01-10 11:55] LABS: Glucose Point of Care 154 mg/dl (65-105)
--- NOTE | 2022-01-10 13:55 | PM.IMPN ---
Progress Note: A&P Assessment and Plan (1) Status post total hip replacement, right: Code(s): Z96.641 - Presence of right artificial hip joint Status: Acute Assessment and Plan: Underwent right total hip arthroplasty on 01/07/[address] Bedoya. Tolerated the procedure well. Management per Orthopedic surgery (2) Hyponatremia: Code(s): E87.1 - Hypo-osmolality and hyponatremia Status: Acute Assessment and Plan: Sodium in November 2021 was 135. Sodium declined to 125 postoperatively. Triamterene-hydrochlorothiazide is on hold. 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 Sodium remaining stable at 128. Tighten fluid restriction to 1500 ml/day. Urine sodium is <5. Osmolality pending. Started normal saline at 120 ml/hr at 07:30 but unfortunately was not hung until approx 14:00. Will cancel repeat sodium scheduled for 15:00 and push back to 21:00. Continue to monitor sodium trends. (3) Urinary retention: Code(s): R33.9 - Retention of urine, unspecified Status: Acute Assessment and Plan: Burton catheter was initiated on 01/08 due to issues with retention. Burton catheter removed today and voiding trial underway. Anticipate some delay with voiding given pt is on fluid restriction diet and just started on IV fluids. Spoke with nursing staff and will plan to complete bladder scan later this afternoon if pt unable to void. Encouraged to ambulate to bathroom and attempt voiding at therapy session this afternoon. (4) Leukocytosis: Code(s): D72.829 - Elevated white blood cell count, unspecified Status: Acute Assessment and Plan: Likely reactive secondary to surgery. No signs/symptoms to suggest acute infection. WBC trending down. (5) MAMADOU on CPAP: Code(s): G47.33 - Obstructive sleep apnea (adult) (pediatric); Z99.89 - Dependence on other enabling machines and devices Status: Chronic Assessment and Plan: Continue home CPAP (6) CAD (coronary artery disease): Code(s): I25.10 - Atherosclerotic heart disease of [place] coronary artery without angina pectoris Status: Chronic Assessment and Plan: No acute issues. Continue aspirin, bisoprolol, atorvastatin (7) Type 2 diabetes mellitus: Code(s): E11.9 - Type 2 diabetes mellitus without complications Status: Chronic Assessment and Plan: Last A1c 6.0 in October 2021. Blood sugars have been well controlled during admission. Metformin on hold. Continue Accu-Cheks, sliding scale insulin, hypoglycemic protocol (8) Essential hypertension: Code(s): I10 - Essential (primary) hypertension Status: Chronic Assessment and Plan: Continue bisoprolol and hydralazine. Triamterene-hydrochlorothiazide is on hold and should likely be discontinued prior to discharge given hyponatremia. Blood pressures have been stable off this medication. Subjective Date/time seen: 01/10/22 13:55 Interval history: Date of service: 01/09/2022 Jevon Wells is a 76-year-old male with a history of BPH, CAD, hypertension, hyperlipidemia, type 2 diabetes mellitus, and osteoarthritis of the right hip s/p right total hip arthroplasty. He is being seen in consultation for medical management. He is feeling better today. His pain is improving. He got up and walked with physical therapy today and felt while doing this. He had a bowel movement today. His Burton catheter was removed this morning and he has not urinated since it was been out but notes that he has not been able to drink much and has no urge to urinate. His sore throat has resolved. His appetite is good. He still feels weak. Denies shortness of breath, chest pain, abdominal pain, nausea, vomiting. Review of Systems Review of Systems: All systems reviewed & are unremarkable except as noted in HPI and below Exam Narrative: General: Well-nourished, well-appearing 76-year-old male, sitting up in b
--- NOTE | 2022-01-10 14:32 | PM.DS ---
DS: Admitting Diagnosis Discharge Date 01/11/22 Admitting Diagnosis Severe hip arthritis. DS: Discharge Diagnosis Discharge Diagnosis (1) Status post total hip replacement, right: Code(s): Z96.641 - Presence of right artificial hip joint Status: Acute Assessment and Plan: Postop day 1: Right total Hip arthroplasty. Patient tolerated procedure well. He was found to have urinary retention and hyponatremia post operatively. He has been on fluid restriction and sodium has been stable at 128. Burton removed today and voiding trial underway. Spoke with hospitalist who agrees that as long as he can urinate and sodium remains stable or increases, patient is okay for discharge to inpatient rehab. I recommend rehab so that patient can continue to increase strength before returning home. He is very deconditioned and his is unable to help him. He will need his sodium check again in 1 week and follow up with his PCP. Pain currently manageable with pain medication. Will send paper scrip for rehab. No numbness or tingling or associated symptoms at this time. We had a lengthy discussion regarding postoperative wound care, limitations, expectations, and exercises. Patient shows good understanding. He has had initial physical therapy and is motivated to work with PT at rehab to gain strength. His goal is to return home and continue working. DVT prophylaxis: 81 mg baby aspirin b.i.d. for 14 days. Pain medication: Hydrocodone, Ibuprofen. Patient has followup appointment with Dr. Bedoya in 3 weeks. DS: Summary Hospital Course Reason for hospitalization: Total hip arthroplasty Hospital Course: Patient tolerated the surgery. Found to have hyponatremia and urinary retention postoperatively. He had trouble controlling pain the first day post op and an xray was ordered to rule out dislocation. This was negative. Patient is deconditioned and feels weak. He will require discharge to inpatient rehab. Patient okay for discharge when medically stable and he has urinated. Status at Discharge Functional status at discharge: uses cane/walker Overall status at discharge: patient is progressing back to baseline Time Spent with Patient Time attestation: Total time spent providing and/or coordinating discharge services: Exam Narrative: Obese 76 y/o male. Resting comfortably in bed. Wearing compression socks bilaterally. Dressing dry and intact with no drainage. Moderate swelling. No ecchymosis. No erythema. No hematoma. Range of motion limited due to pain. Calf nontender. Thigh nontender. Neurologic status intact. No varicosities. Distal pulses palpable. DS: Data Data Completed and Pending Labs on day of discharge: Labs from last 24 hours 01/10/22 01/10/22 01/10/22 11:39 08:36 05:00 WBC RBC Hgb Hct MCV MCH MCHC RDW Plt Count MPV Sodium 128 L Potassium 3.7 Chloride 93 L Carbon Dioxide 27 Anion Gap 8 BUN 13 Creatinine 0.90 Estim Creat Clear Calc 80 Estimated GFR > 60 Glucose 131 H POC Capillary Glucose 154 H 151 H Calcium 8.4 01/10/22 01/09/22 01/09/22 05:00 17:09 14:51 WBC 11.8 H RBC 3.53 L Hgb 10.5 L Hct 29.8 L MCV 84.4 MCH 29.7 MCHC 35.2 RDW 14.1 Plt Count 301 MPV 10.3 Sodium 128 L Potassium Chloride Carbon Dioxide Anion Gap BUN Creatinine Estim Creat Clear Calc Estimated GFR Glucose POC Capillary Glucose 154 H Calcium Discharge Plan Discharge Attending physician on discharge: Girma Bedoya Consulting providers: Abbi Flannery Discharging Clinician: Anna Yusuf Anticipated Discharge Date/Time: 01/11/22 14:24 Patient Disposition: Inpatient Rehab Facility Activity: june shower Diet: as tolerated Wound Care Instructions: follow printed instructions Discharge Instructions: See green discharge instru
[2022-01-10 17:56] LABS: Glucose Point of Care 137 mg/dl (65-105)
[2022-01-10] MEDS: bisoproloL fumarate 5 MG TABLET 20 MG PO (20:48)
[2022-01-10] MEDS: FAMOTIDINE 20 MG TABLET PO (20:49)
[2022-01-10] MEDS: ATORVASTATIN 40 MG TABLET PO (20:49)
[2022-01-10 21:58] LABS: Sodium 129 mmol/L (137-145)
[2022-01-11 02:00] VITALS: BP 146/51; PULSE 65; RESP 20; TEMP 36.3; O2SAT 98
[2022-01-11] MEDS: SODIUM CHLORIDE 0.9% IV 1,000 ML 120 ML IV CONT ×2 (04:43→13:11)
[2022-01-11] MEDS: ACETAMINOPHEN 500 MG TABLET 1000 MG PO ×2 (05:20→13:12)
[2022-01-11 05:53] LABS: Hematocrit 29.7 % (42.0-52.0); Hemoglobin 10.2 g/dL (14.0-18.0); Mean Corpuscular HGB Conc 34.3 g/dl (32-36); Mean Corpuscular Hemoglobin 29.5 pg (26-34); Mean Corpuscular Volume 85.8 fl (80-100); Mean Platelet Volume 10.2 fl (7.4-10.4); Platelet Count Result 350 k/mm3 (150-375); Red Blood Count 3.46 M/mm3 (4.6-6.20); White Blood Count 9.5 K/mm3 (4.5-10.0)
[2022-01-11 06:05] LABS: Anion Gap 5 mmol/L (8-16); Blood Urea Nitrogen 12 mg/dL (9-20); Calcium 8.3 mg/dL (8.4-10.2); Carbon Dioxide 28 mmol/L (22-30); Chloride 97 mmol/L (98-107); Estimated CRCL calculation 80 ml/min; Estimated Glomerular Filt Rate > 60; Glucose 129 mg/dL (65-110); Potassium 3.9 mmol/L (3.4-5.0); Sodium 130 mmol/L (137-145)
[2022-01-11 07:27] VITALS: BP 132/48; PULSE 64; RESP 18; TEMP 36.3; O2SAT 96
[2022-01-11 08:28] LABS: Glucose Point of Care 124 mg/dl (65-105)
[2022-01-11 09:30] VITALS: PULSE 74; RESP 20; O2SAT 99
--- NOTE | 2022-01-11 09:30 | PM.IMPN ---
Progress Note: A&P Assessment and Plan (1) Status post total hip replacement, right: Code(s): Z96.641 - Presence of right artificial hip joint Status: Acute Assessment and Plan: Underwent right total hip arthroplasty on 01/07/[address] Bedoya. Tolerated the procedure well. Management per Orthopedic surgery DVT Aspirin Add one time dose of toradol (2) Hyponatremia: Code(s): E87.1 - Hypo-osmolality and hyponatremia Status: Acute Assessment and Plan: Sodium in November 2021 was 135. Sodium declined to 125 postoperatively. Triamterene-hydrochlorothiazide is on hold. 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 Sodium remaining stable at 130 today. Tighten fluid restriction to 1500 ml/day. Urine sodium is <5. Osmolality pending. Normal saline at 120ml/hr started (3) Urinary retention: Code(s): R33.9 - Retention of urine, unspecified Status: Acute Assessment and Plan: Burton catheter was initiated on 01/08 due to issues with retention. Burton catheter removed voiding trial successful. Anticipate some delay with voiding given pt is on fluid restriction diet and just started on IV fluids. Encouraged to ambulate to bathroom and attempt voiding at therapy session this afternoon. Reported patient voided 700ml overnight (4) Leukocytosis: Code(s): D72.829 - Elevated white blood cell count, unspecified Status: Acute Assessment and Plan: Likely reactive secondary to surgery. No signs/symptoms to suggest acute infection. WBC trending down, currently 9.5 Stable (5) MAMADOU on CPAP: Code(s): G47.33 - Obstructive sleep apnea (adult) (pediatric); Z99.89 - Dependence on other enabling machines and devices Status: Chronic Assessment and Plan: Continue home CPAP (6) CAD (coronary artery disease): Code(s): I25.10 - Atherosclerotic heart disease of [place] coronary artery without angina pectoris Status: Chronic Assessment and Plan: No acute issues. Continue aspirin, bisoprolol, atorvastatin (7) Type 2 diabetes mellitus: Code(s): E11.9 - Type 2 diabetes mellitus without complications Status: Chronic Assessment and Plan: Last A1c 6.0 in October 2021. Blood sugars have been well controlled during admission. Metformin on hold. Continue Accu-Cheks sliding scale insulin hypoglycemic protocol (8) Essential hypertension: Code(s): I10 - Essential (primary) hypertension Status: Chronic Assessment and Plan: BP is stable 132/48 Continue bisoprolol and hydralazine. Triamterene-hydrochlorothiazide is on hold discontinued prior to discharge given hyponatremia. Blood pressures have been stable off this medication. Continue to trend BP Adjust therapy as indicated Time Spent With Patient Time with patient: Greater than 35 minutes Subjective Date/time seen: 01/11/22929 Interval history: 01/10/22929 Patient seems to be doing well today. He denies any chest pain, shortness a breath, nausea, vomiting, diarrhea or constipation. Patient stated he is having a really hard time just getting comfortable. His pain with physical therapy was 7/10. He is doing okay with walking however is still unable to get out of the chair or get up out of bed without support. Still awaiting placement at this time. Sodium is stable at 130. Patient should be able to discharge any time 01/10/2022 1355 Jevon Wells is a 76-year-old male with a history of BPH, CAD, hypertension, hyperlipidemia, type 2 diabetes mellitus, and osteoarthritis of the right hip s/p right total hip arthroplasty.? He is being seen in consultation for medical management.? He is feeling better today.? His pain is improving.? He got up and walked with physical therapy today and fe
--- NOTE | 2022-01-11 09:30 | P.PNIM_ITS ---
Progress Note: A&P Assessment and Plan (1) Status post total hip replacement, right: Code(s): Z96.641 - Presence of right artificial hip joint Status: Acute Assessment and Plan: * Underwent right total hip arthroplasty on 01/07/[address] Bedoya. * Tolerated the procedure well. * Management per Orthopedic surgery * DVT Aspirin * Add one time dose of toradol (2) Hyponatremia: Code(s): E87.1 - Hypo-osmolality and hyponatremia Status: Acute Assessment and Plan: * Sodium in November 2021 was 135. * Sodium declined to 125 postoperatively. * Triamterene-hydrochlorothiazide is on hold. 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 * Sodium remaining stable at 130 today. * Tighten fluid restriction to 1500 ml/day. * Urine sodium is <5. * Osmolality pending. * Normal saline at 120ml/hr started (3) Urinary retention: Code(s): R33.9 - Retention of urine, unspecified Status: Acute Assessment and Plan: * Burton catheter was initiated on 01/08 due to issues with retention. * Burton catheter removed voiding trial successful. * Anticipate some delay with voiding given pt is on fluid restriction diet and just started on IV fluids. * Encouraged to ambulate to bathroom and attempt voiding at therapy session this afternoon. * Reported patient voided 700ml overnight (4) Leukocytosis: Code(s): D72.829 - Elevated white blood cell count, unspecified Status: Acute Assessment and Plan: * Likely reactive secondary to surgery. * No signs/symptoms to suggest acute infection. * WBC trending down, currently 9.5 * Stable (5) MAMADOU on CPAP: Code(s): G47.33 - Obstructive sleep apnea (adult) (pediatric); Z99.89 - Dependence on other enabling machines and devices Status: Chronic Assessment and Plan: * Continue home CPAP (6) CAD (coronary artery disease): Code(s): I25.10 - Atherosclerotic heart disease of [place] coronary artery without angina pectoris Status: Chronic Assessment and Plan: * No acute issues. * Continue aspirin, bisoprolol, atorvastatin (7) Type 2 diabetes mellitus: Code(s): E11.9 - Type 2 diabetes mellitus without complications Status: Chronic Assessment and Plan: * Last A1c 6.0 in October 2021. * Blood sugars have been well controlled during admission. * Metformin on hold. * Continue Accu-Cheks * sliding scale insulin * hypoglycemic protocol (8) Essential hypertension: Code(s): I10 - Essential (primary) hypertension Status: Chronic Assessment and Plan: * BP is stable 132/48 * Continue bisoprolol and hydralazine. * Triamterene-hydrochlorothiazide is on hold discontinued prior to discharge given hyponatremia. * Blood pressures have been stable off this medication. * Continue to trend BP * Adjust therapy as indicated Time Spent With Patient Time with patient: Greater than 35 minutes Subjective Date/time seen: 01/11/22929 Interval history: 01/10/22929 Patient seems to be doing well today. He denies any chest pain, shortness a breath, nausea, vomiting, diarrhea or constipation. Patient stated he is having a really hard time just getting comfortable. His pascual
[2022-01-11] MEDS: FAMOTIDINE 20 MG TABLET PO (09:37)
[2022-01-11] MEDS: minoxidiL 10 MG TABLET PO (09:37)
[2022-01-11] MEDS: hydrALAZINE HCL 25 MG TABLET PO (09:38)
[2022-01-11] MEDS: SENNA/DOCUSATE SODIUM TABLET 2 TAB PO (09:38)
[2022-01-11] MEDS: ASPIRIN 81 MG ENTERIC TABLET PO (09:39)
[2022-01-11 10:00] VITALS: BP 137/52; PULSE 68; RESP 20; TEMP 36.7; O2SAT 99
[2022-01-11 12:18] LABS: Glucose Point of Care 131 mg/dl (65-105)
[2022-01-11 14:00] VITALS: BP 148/54; PULSE 74; RESP 20; TEMP 36.8; O2SAT 99
[2022-01-13 19:05] LABS: Osmolality, Urine 631 mOsm/kg (50-1200)
== END 2022-01-11 15:35 | DRG 470 ==
LOC: ANHSURGERY 13:36 → ANH2MED 13:36
PROVIDERS: Internal Medicine; Physician Assistant; Physician Assistant Surgical; Admitting Provider Orthopaedic Surgery; Visit Provider Orthopaedic Surgery
PROC: 0SR904A Replacement of Right Hip Joint with Ceramic on Polyethylene Synthetic Substitute, Uncemented, Open Approach (ICD-10-PCS; CPT 27130; principal; 2022-01-07 07:30)
DX: M16.11 Unilateral primary osteoarthritis, right hip (principal); E87.1 Hypo-osmolality and hyponatremia; E11.9 Type 2 diabetes mellitus without complications; R33.9 Retention of urine, unspecified; I25.10 Atherosclerotic heart disease of native coronary artery without angina pectoris; I10 Essential (primary) hypertension; E78.5 Hyperlipidemia, unspecified; G47.33 Obstructive sleep apnea (adult) (pediatric); D72.829 Elevated white blood cell count, unspecified; N40.0 Benign prostatic hyperplasia without lower urinary tract symptoms; E66.01 Morbid (severe) obesity due to excess calories; Z68.39 Body mass index [BMI] 39.0-39.9, adult; Z95.5 Presence of coronary angioplasty implant and graft; Z96.651 Presence of right artificial knee joint; Z79.82 Long term (current) use of aspirin; Z79.84 Long term (current) use of oral hypoglycemic drugs; Z79.899 Other long term (current) drug therapy
CPT/HCPCS: 36415; 73502; 80048; 81002; 81050; 82570; 82948; 83935; 84133; 84156; 84295; 84300; 85025; 85027; 86850; 86900; 86901; 97110; 97116; 97161; 97165; 97530; 97535; A9270; C1776; J0171; J0330; J0690; J1885; J1940; J2250; J2270; J2405; J2704; J2795; J3010; J7030; J7120